=== PATIENT | male | born 2000 | race Caucasian/White ===

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

== ENCOUNTER 2021-02-19 17:30 | Emergency (ER) | payer OTHER ==
[~2021-02-19] VITALS: Ht 160 cm; Wt 90.7 kg
[2021-02-19] MEDS ORDERED: SPIRONOLACTONE25 MG PO (17:47)
[2021-02-19] MEDS ORDERED: DOTTI1 EAC1 TD (17:47)
--- NOTE | 2021-02-19 20:38 | EKG ---
[facility] [address] [facility] [place], [place] [address] Signed Sinus tachycardia Otherwise normal ECG No previous ECGs available Confirmed by KEDAR MILLER MD ([id number]) on 02/19/2021 8:38:27 PM Electronically Signed By: KEDAR MILLER MD 02/19/212037 PATIENT NAME: MAMADOU SWARTZ Electrocardiogram DATE OF : [birth year] PHYSICIAN: KEDAR MILLER MD REPORT #: [id number] REPORT IS CONFIDENTIAL AND NOT TO BE RELEASED WITHOUT AUTHORIZATION
== END 2021-02-19 19:53 | disposition home or self-care (01) ==
LOC: ED 17:30
DX: I47.1 Supraventricular tachycardia (principal); E87.6 Hypokalemia; Z20.822 Contact with and (suspected) exposure to COVID-19; F17.200 Nicotine dependence, unspecified, uncomplicated; Z79.899 Other long term (current) drug therapy
CPT/HCPCS: 71045; 80053; 85025; 93005; 93010; 99285-25; C9803; J7030; J7121; U0003

== ENCOUNTER 2021-02-21 00:24 | Emergency (ER) | payer OTHER ==
[~2021-02-21] VITALS: Ht 160 cm; Wt 90.7 kg
[~2021-02-21 00:24] MED LIST: DOTTI1 EAC1 TD; SPIRONOLACTONE25 MG PO
--- OUTSIDE RECORDS SUMMARY | 2021-02-21 00:32 | XMS ---
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 - 2 Visits in 30 Days CARE PROVIDERS There are no care providers on record at this time. Merle has no Care Guidelines for this patient. [place] [facility] (12 MO.) [facility] NOTE: Visits indicate total known visits. ED/C VISIT TRACKING (12 MO.) 02/21/2021 00:[address] [facility] [place] TYPE: Emergency COMPLAINT: - CHEST PAIN 02/19/2021 17:30 [facility] [place] [place] TYPE: Emergency COMPLAINT: - DIFFICULTY BREATHING INPATIENT VISIT TRACKING (12 MO.) No inpatient visits to display in this time frame [id number]
--- NOTE | 2021-02-21 16:16 | EKG ---
[facility] [address] [facility] [place], [place] [address] Signed Normal sinus rhythm Normal ECG When compared with ECG of 19-FEB-2021 17:37, No significant change was found Confirmed by KEDAR MILLER MD ([id number]) on 02/21/2021 4:15:50 PM Electronically Signed By: KEDAR MILLER MD 02/21/21 1616 PATIENT NAME: MAMADOU SWARTZ BRITNEY Electrocardiogram DATE OF : [birth year] PHYSICIAN: KEDAR MILLER MD REPORT #: [id number] REPORT IS CONFIDENTIAL AND NOT TO BE RELEASED WITHOUT AUTHORIZATION
== END 2021-02-21 05:31 | disposition home or self-care (01) ==
LOC: ED 00:24
DX: R00.2 Palpitations (principal); F43.10 Post-traumatic stress disorder, unspecified; F17.200 Nicotine dependence, unspecified, uncomplicated; Z79.899 Other long term (current) drug therapy
CPT/HCPCS: 71045; 80053; 83735; 84484; 85025; 85379; 93005; 93010; 99285-25

== ENCOUNTER 2021-02-22 16:49 | Emergency (ER) | payer OTHER ==
[~2021-02-22] VITALS: Ht 160 cm; Wt 90.7 kg
--- OUTSIDE RECORDS SUMMARY | 2021-02-22 16:56 | XMS ---
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 Care History Medical/Surgical 02/21/2021 [facility] - Patient is currently established with [facility]. If patient is seen in the ED during business hours. Please contact CHWs at [facility]. Care Recommendation: If this patient has had 5 or more Emergency Department visits in the last 12 months.\T\nbsp; Patient will require education on the scope and purpose of the ED as an acute care provider not a Primary Care Provider and should not be utilized for chronic conditions.\T\nbsp; These are guidelines and the provider should exercise clinical judgment when providing care. E.D. VISIT COUNT (12 MO.) 3 [facility] TOTAL 3 NOTE: Visits indicate total known visits. ED/C VISIT TRACKING (12 MO.) 02/22/2021 16:[address] [facility] [place] TYPE: Emergency COMPLAINT: - HEART PALPITATIONS 02/21/2021 00:[address] [facility] [place] TYPE: Emergency COMPLAINT: - CHEST PAIN 02/19/2021 17:[address] [facility] [place] TYPE: Emergency COMPLAINT: - DIFFICULTY BREATHING DIAGNOSES: - Hypokalemia - Nicotine dependence, unspecified, uncomplicated - Other hogshead stripper (current) drug therapy - Supraventricular tachycardia INPATIENT VISIT TRACKING (12 MO.) No inpatient visits to display in this time frame [email or web address]
--- NOTE | 2021-02-23 19:03 | EKG ---
[facility] [address] [facility] [place] [address] Signed Sinus rhythm with sinus arrhythmia with short [place] Otherwise normal ECG When compared with ECG of 21-FEB-2021 00:33, Vent. rate has decreased BY 34 BPM Confirmed by LISANDRO VASQUES MD ([id number]) on 02/23/2021 7:03:32 PM Electronically Signed By: LISANDRO VASQUES MD 02/23/21 1903 PATIENT NAME: AMMADOU SWARTZ BRITNEY Electrocardiogram DATE OF : 01 PHYSICIAN: LISANDRO VASQUES MD REPORT #: [id number] REPORT IS CONFIDENTIAL AND NOT TO BE RELEASED WITHOUT AUTHORIZATION
== END 2021-02-22 18:12 | disposition home or self-care (01) ==
LOC: ED 16:49
DX: R00.2 Palpitations (principal); F43.10 Post-traumatic stress disorder, unspecified; E11.9 Type 2 diabetes mellitus without complications; F17.200 Nicotine dependence, unspecified, uncomplicated; Z79.899 Other long term (current) drug therapy
CPT/HCPCS: 93005; 93010; 99284-25

== ENCOUNTER 2022-03-08 19:26 | Emergency (ER) | payer OTHER ==
[~2022-03-08] VITALS: Ht 160 cm; Wt 74.5 kg
[2022-03-08] MEDS ORDERED: ESTRADIOL20 MG/1 ML IM (22:21)
[2022-03-08] MEDS ORDERED: SPIRONOLACTONE50 MG PO (22:21)
[2022-03-08] MEDS ORDERED: CLEOCIN HCL300 MG PO (23:40)
[2022-03-08] MEDS ORDERED: HYDROCODON-ACE1 EA10 PO (23:40)
== END 2022-03-09 00:15 | disposition home or self-care (01) ==
LOC: ED 19:26
DX: K04.7 Periapical abscess without sinus (principal); F43.10 Post-traumatic stress disorder, unspecified; F17.200 Nicotine dependence, unspecified, uncomplicated; Z79.899 Other long term (current) drug therapy
CPT/HCPCS: 36415; 70491; 80053; 85025; 99283-25; A9270; Q9967

== ENCOUNTER 2022-08-28 18:51 | Emergency (ER) | payer OTHER ==
[~2022-08-28] VITALS: Ht 160 cm; Wt 74.8 kg
[~2022-08-28 18:51] MED LIST changes: +CLEOCIN HCL300 MG PO; +ESTRADIOL20 MG/1 ML IM; +HYDROCODON-ACE1 EA10 PO; +SPIRONOLACTONE50 MG PO
[2022-08-28] MEDS ORDERED: K-TAB10 MEQ PO (20:52)
== END 2022-08-28 21:00 | disposition home or self-care (01) ==
LOC: ED 18:51
DX: R56.9 Unspecified convulsions (principal); E87.6 Hypokalemia; F43.10 Post-traumatic stress disorder, unspecified; F17.200 Nicotine dependence, unspecified, uncomplicated; Z79.899 Other long term (current) drug therapy
CPT/HCPCS: 36415; 80048; 85025; 96374; 99284-25; A9270; J2060

== ENCOUNTER 2023-12-27 21:02 | Emergency (ER) | payer OTHER ==
[~2023-12-27] VITALS: Ht 160 cm; Wt 79.5 kg
[~2023-12-27 21:02] MED LIST changes: +K-TAB10 MEQ PO; +KEPPRA500 MG PO
[2023-12-27] MEDS ORDERED: LORazepam 2 MG/ML VIAL ONE (21:14)
[2023-12-27] MEDS ORDERED: LACTATED RINGER'S 1,000 ML IV ONE (21:15)
[2023-12-27] MEDS ORDERED: levETIRAcetam 500 MG/5 ML VIAL IV ONE (21:15)
[2023-12-27] MEDS ORDERED: LORazepam 2 MG/ML VIAL IV ONE (21:15)
[2023-12-27 21:17] LABS: BASOPHILS 0.8 % (0-2); EOSINOPHILS 1.3 % (0-6); HEMATOCRIT 43.8 % (35.0-50.0); HEMOGLOBIN 14.6 g/dL (12.0-18.0); LYMPHOCYTES 30.2 % (24-44); MCH 29.3 (27-36); MCHC 33.4 g/dl (30-36); MCV 87.8 fl (81-99); MONOCYTES 5.8 % (0-12); NEUTROPHILS 61.9 % (39-80); PLATELET COUNT 360 K/uL (140-440); RBC 4.99 M/ul (4.3-5.7); RDW 13.2 (10.5-15.0)
[2023-12-27 21:30] LABS: ALBUMIN 3.2 g/dL (3.4-5.0); ALBUMIN/GLOBULIN RATIO 0.97 (1.1-2.4); ALCOHOL, MEDICAL <3 ng/dL (<3); ALKALINE PHOSPHATASE 88 U/L (46-116); ALT (SGPT) 19 U/L (14-59); ANION GAP 17.8 (7-21); AST (SGOT) 8 U/L (15-37); BILIRUBIN, TOTAL 0.2 ng/dL (0.2-1.0); BUN/CREATININE RATIO 8.03 (6.0-28.6); CALCIUM 8.6 mg/dL (8.5-10.1); CARBON DIOXIDE 23 mmol/L (21-32); CHLORIDE 104 mmol/L (98-107); CREATININE, SERUM 1.12 mg/dL (0.70-1.30); GLOMERULAR FILTRATION RATE,EST 95 mL/min (>60); MAGNESIUM 1.6 mg/dL (1.8-2.4); POTASSIUM 3.8 mmol/L (3.5-5.1); PROTEIN, TOTAL 6.5 g/dL (6.4-8.2); UREA NITROGEN 9 mg/dL (7-18)
[2023-12-27 22:03] LABS: BILIRUBIN, URINE NEGATIVE (negative); BLOOD/HGB, URINE NEGATIVE (Negative); KETONE, URINE TRACE (Negative); LEUK ESTERASE, URINE NEGATIVE (negative); NITRITE, URINE NEGATIVE (negative); PH, URINE 6.5 (5-7)
[2023-12-27] MEDS ORDERED: MAGNESIUM SULFATE 2 GM/50 ML BAG IV ONE (22:15)
[2023-12-27 22:17] LABS: AMPHETAMINES, URINE NEGATIVE (NEGATIVE); BARBITURATES, URINE NEGATIVE (NEGATIVE); BENZODIAZEPINE, URINE POSITIVE (NEGATIVE); BUPRENORPHINE, URINE NEGATIVE (NEGATIVE); CANNABINOID, URINE POSITIVE (NEGATIVE); COCAINE, URINE NEGATIVE (NEGATIVE); ECSTASY, URINE NEGATIVE (NEGATIVE); FENTANYL, URINE NEGATIVE (NEGATIVE); METHADONE, URINE NEGATIVE (NEGATIVE); OPIATES, URINE NEGATIVE (NEGATIVE); OXYCODONE, URINE NEGATIVE (NEGATIVE); PHENCYCLIDINE, URINE NEGATIVE (NEGATIVE)
[2023-12-28] MEDS ORDERED: KEPPRA500 MG PO (02:54)
[2023-12-28 05:57] VITALS: BP 112/77
== END 2023-12-28 06:00 | disposition home or self-care (01) ==
LOC: ED 21:02
PROVIDERS: Internal Medicine
DX: G40.409 Other generalized epilepsy and epileptic syndromes, not intractable, without status epilepticus (principal); F43.10 Post-traumatic stress disorder, unspecified; F17.200 Nicotine dependence, unspecified, uncomplicated; Z79.899 Other long term (current) drug therapy
CPT/HCPCS: 36415; 71045; 80053; 80307; 81003; 83735; 85025; 96365; 96375; 99284-25; G0480; J1953; J2060; J3475; J7121

== ENCOUNTER 2024-01-18 02:18 | Emergency (ER) | payer OTHER ==
[~2024-01-18] VITALS: Ht 160 cm; Wt 73.3 kg
[2024-01-18] MEDS ORDERED: levETIRAcetam 500 MG/5 ML VIAL IV ONE (02:45)
[2024-01-18 02:49] LABS: BASOPHILS 1.4 % (0-2); EOSINOPHILS 1.6 % (0-6); HEMATOCRIT 40.8 % (35.0-50.0); HEMOGLOBIN 14.2 g/dL (12.0-18.0); LYMPHOCYTES 35.9 % (24-44); MCH 29.8 (27-36); MCHC 34.7 g/dl (30-36); MCV 85.9 fl (81-99); MONOCYTES 6.1 % (0-12); PLATELET COUNT 283 K/uL (140-440); RBC 4.75 M/ul (4.3-5.7); RDW 13.3 (10.5-15.0)
[2024-01-18 02:53] LABS: BILIRUBIN, URINE NEGATIVE (negative); BLOOD/HGB, URINE NEGATIVE (Negative); KETONE, URINE NEGATIVE (Negative); LEUK ESTERASE, URINE NEGATIVE (negative); NITRITE, URINE NEGATIVE (negative); PH, URINE 6.5 (5-7)
[2024-01-18 03:02] LABS: AMPHETAMINES, URINE NEGATIVE (NEGATIVE); BARBITURATES, URINE NEGATIVE (NEGATIVE); BENZODIAZEPINE, URINE NEGATIVE (NEGATIVE); BUPRENORPHINE, URINE NEGATIVE (NEGATIVE); CANNABINOID, URINE POSITIVE (NEGATIVE); COCAINE, URINE NEGATIVE (NEGATIVE); ECSTASY, URINE NEGATIVE (NEGATIVE); FENTANYL, URINE NEGATIVE (NEGATIVE); METHADONE, URINE NEGATIVE (NEGATIVE); OPIATES, URINE NEGATIVE (NEGATIVE); OXYCODONE, URINE NEGATIVE (NEGATIVE); PHENCYCLIDINE, URINE NEGATIVE (NEGATIVE)
[2024-01-18 03:06] LABS: ALBUMIN 3.2 g/dL (3.4-5.0); ALBUMIN/GLOBULIN RATIO 1.03 (1.1-2.4); ALCOHOL, MEDICAL <3 ng/dL (<3); ALKALINE PHOSPHATASE 75 U/L (46-116); ALT (SGPT) 17 U/L (14-59); ANION GAP 10.3 (7-21); AST (SGOT) 9 U/L (15-37); BILIRUBIN, TOTAL 0.3 ng/dL (0.2-1.0); BUN/CREATININE RATIO 9.33 (6.0-28.6); CALCIUM 8.4 mg/dL (8.5-10.1); CARBON DIOXIDE 27 mmol/L (21-32); CHLORIDE 105 mmol/L (98-107); CREATININE, SERUM 0.75 mg/dL (0.70-1.30); GLOMERULAR FILTRATION RATE,EST 131 mL/min (>60); POTASSIUM 3.3 mmol/L (3.5-5.1); PROTEIN, TOTAL 6.3 g/dL (6.4-8.2); UREA NITROGEN 7 mg/dL (7-18)
[2024-01-18] MEDS ORDERED: POTASSIUM CHLORIDE 10 MEQ TABCR PO ONE (03:15)
[2024-01-18] MEDS ORDERED: LACTATED RINGER'S 1,000 ML IV ONE (03:30)
[2024-01-18] MEDS ORDERED: POTASSIUM CHLORIDE 20 MEQ/15 ML CUP PO ONE (03:30)
[2024-01-18 05:19] VITALS: BP 106/61
--- NOTE | 2024-01-18 20:58 | EKG ---
[facility] [address] [place] [address] Signed Normal sinus rhythm Normal ECG When compared with ECG of 22-FEB-2021 17:01, [place] interval has increased Confirmed by Charles Marie MD () on 01/18/2024 8:58:12 PM Electronically Signed By: CHARLES MARIE MD 01/18/242057 PATIENT NAME: MAMADOU SWARTZ Electrocardiogram DATE OF : 01 PHYSICIAN: CHARLES MARIE MD REPORT #: [id number] REPORT IS CONFIDENTIAL AND NOT TO BE RELEASED WITHOUT AUTHORIZATION
== END 2024-01-18 05:21 | disposition home or self-care (01) ==
LOC: ED 02:18
PROVIDERS: Internal Medicine
DX: G40.909 Epilepsy, unspecified, not intractable, without status epilepticus (principal); F31.81 Bipolar II disorder; F17.200 Nicotine dependence, unspecified, uncomplicated; Z79.899 Other long term (current) drug therapy
CPT/HCPCS: 36415; 71045; 80053; 80307; 81003; 84484; 85025; 93005; 93010; 96374; 99284-25; A9270; G0480; J1953; J7121

== ENCOUNTER 2024-02-05 08:39 | Emergency (ER) | payer OTHER ==
[~2024-02-05] VITALS: Ht 160 cm; Wt 68.3 kg
[2024-02-05] MEDS ORDERED: LIDOCAINE 2% (VISCOUS) HCL 15 ML UDC MT ONE (09:00)
[2024-02-05] MEDS ORDERED: KETOROLAC TROME10 MG PO (09:11)
[2024-02-05 09:34] VITALS: BP 128/70
== END 2024-02-05 09:36 | disposition home or self-care (01) ==
LOC: ED 08:39
DX: J02.8 Acute pharyngitis due to other specified organisms (principal); B97.89 Other viral agents as the cause of diseases classified elsewhere; F31.81 Bipolar II disorder; F17.200 Nicotine dependence, unspecified, uncomplicated; Z79.899 Other long term (current) drug therapy
CPT/HCPCS: 87651; 99283

== ENCOUNTER 2024-02-07 18:00 | Observation (INO) | payer OTHER ==
[~2024-02-07] VITALS: Ht 160 cm; Wt 60.8 kg
[~2024-02-07 18:00] MED LIST changes: +KETOROLAC TROME10 MG PO
[2024-02-07] MEDS ORDERED: AMP/SULBACTAM SOD 3 GM VIAL IV ONE (19:09)
[2024-02-07] MEDS ORDERED: LACTATED RINGER'S 1,000 ML IV ONE (19:15)
[2024-02-07] MEDS ORDERED: AMP/SULBACTAM SOD 3 GM in SODIUM CHLORIDE 0.9% 100 ML IV ONE (19:15)
[2024-02-07] MEDS ORDERED: CEFTRIAXONE/SODIUM CHLORIDE 2 GM/100 ML PIGGYBACK IV ONE (19:15)
[2024-02-07] MEDS ORDERED: ondansetron HCL 4 MG/2 ML VIAL IV ONE (19:15)
[2024-02-07] MEDS ORDERED: ACETAMINOPHEN 500 MG TAB PO ONE (19:15)
[2024-02-07 19:31] LABS: INR 1.25 (0.80-1.30); PROTIME 15.3 Sec (11.2-14.2)
[2024-02-07 19:32] LABS: HEMATOCRIT 43.6 % (35.0-50.0); HEMOGLOBIN 15.3 g/dL (12.0-18.0); MCHC 35.1 g/dl (30-36); MCV 82.6 fl (81-99); PLATELET COUNT 223 K/uL (140-440); RBC 5.28 M/ul (4.3-5.7); RDW 13.3 (10.5-15.0)
[2024-02-07 19:33] LABS: PARTIAL THROMBOPLASTIN TIME 27.1 Sec (22.9-41.3)
[2024-02-07 19:36] LABS: ALBUMIN 2.8 g/dL (3.4-5.0); ALBUMIN/GLOBULIN RATIO 0.58 (1.1-2.4); ANION GAP 23.6 (7-21); BILIRUBIN, TOTAL 1.4 ng/dL (0.2-1.0); BUN/CREATININE RATIO 7.47 (6.0-28.6); CALCIUM 8.5 mg/dL (8.5-10.1); CREATININE, SERUM 1.07 mg/dL (0.70-1.30); POTASSIUM 2.6 mmol/L (3.5-5.1); PROTEIN, TOTAL 7.6 g/dL (6.4-8.2)
[2024-02-07 19:45] LABS: BILIRUBIN, URINE POSITIVE (negative); BLOOD/HGB, URINE SMALL (Negative); KETONE, URINE >=80 (Negative); LEUK ESTERASE, URINE NEGATIVE (negative); NITRITE, URINE NEGATIVE (negative); PH, URINE 6.5 (5-7)
[2024-02-07 19:52] LABS: BASOPHILS, MANUAL DIFF 1; LYMPHOCYTES, MANUAL DIFF 38; MONOCYTES, MANUAL DIFF 9; NEUTROPHILS, MANUAL DIFF 50; OTHER, MANUAL DIFF 2
[2024-02-07] MEDS ORDERED: LACTATED RINGER'S 1,000 ML IV SCH ×2 (20:15→23:45)
[2024-02-07 20:20] LABS: BACTERIA, URINE 1+ /hpf (negative); CASTS, URINE HYALINE 1+ \\lpf; COLLECTION TYPE, URINE CLEAN CATCH; CRYSTALS, URINE NONE SEEN (0-1+); EPITHELIAL CELLS, URINE SQUAMOUS 1+ /lpf (0-1+); REFLEX CULTURE, URINE No (No)
[2024-02-07 20:41] LABS: INFLUENZA B NAA NEGATIVE (NEGATIVE); RESPIRATORY SYNCYTIAL VIR NAA NEGATIVE (NEGATIVE)
[2024-02-07] MEDS ORDERED: DEXAMETHASONE SOD PHOS 10 MG/ML VIAL IV ONE (21:00)
[2024-02-07 21:24] LABS: LACTIC ACID, BLOOD 2.8 mmol/L (0.4-2.0)
[2024-02-07] MEDS ORDERED: ondansetron HCL 4 MG/2 ML VIAL IV PRN (23:45)
[2024-02-08] VITALS (9 sets, daily range): BP systolic 122–131; BP diastolic 64–79
[2024-02-08] MEDS ORDERED: ESTRACE2 MG PO (01:32)
[2024-02-08] MEDS ORDERED: NICOTINE POLACRILEX 4 MG LOZENGE BUCCAL PRN (02:00)
[2024-02-08] MEDS ORDERED: ACETAMINOPHEN 500 MG TAB PO PRN ×2 (02:00→07:00)
[2024-02-08] MEDS ORDERED: AMP/SULBACTAM SOD 3 GM in SODIUM CHLORIDE 0.9% 100 ML IV SCH (02:00)
[2024-02-08] MEDS ORDERED: AMP/SULBACTAM SOD 3 GM VIAL IV ONE (02:04)
[2024-02-08] MEDS ORDERED: POTASSIUM CHLORIDE 10 MEQ TABCR PO ONE ×5 (03:00→23:45)
--- NOTE | 2024-02-08 03:17 | NUR ---
ADMISSION ASSESSMENT COMPLETED, PT MEDICATED WITH TYLENOL FOR THROAT PAIN 12/29. PT MEDICATED WITH KCLOR 40MEQ PO, PT VOIDED PER URINAL 200ML YELLOW URINE, PT WITHOUT OTHER REQUESTS, SIDE RAILS UP X 4, BED IN LOW POSITION, CALL LIGHT IN REACH.
--- NOTE | 2024-02-08 04:40 | NUR ---
PT ASLEEP, RESP EVEN AND REG, WITHOUT DISTRESS.
[2024-02-08 05:38] LABS: BASOPHILS 1.1 % (0-2); HEMATOCRIT 40.2 % (35.0-50.0); HEMOGLOBIN 13.7 g/dL (12.0-18.0); LYMPHOCYTES 46.6 % (24-44); MCH 28.5 (27-36); MCHC 34.2 g/dl (30-36); MCV 83.5 fl (81-99); MONOCYTES 4.3 % (0-12); PLATELET COUNT 210 K/uL (140-440); RBC 4.81 M/ul (4.3-5.7); RDW 13.1 (10.5-15.0)
[2024-02-08 06:01] LABS: ALBUMIN 2.4 g/dL (3.4-5.0); ALBUMIN/GLOBULIN RATIO 0.55 (1.1-2.4); ANION GAP 15.4 (7-21); BILIRUBIN, TOTAL 1.2 ng/dL (0.2-1.0); BUN/CREATININE RATIO 7.86 (6.0-28.6); CALCIUM 8.2 mg/dL (8.5-10.1); CREATININE, SERUM 0.89 mg/dL (0.70-1.30); MAGNESIUM 2.2 mg/dL (1.8-2.4); POTASSIUM 3.4 mmol/L (3.5-5.1); PROTEIN, TOTAL 6.8 g/dL (6.4-8.2)
--- NOTE | 2024-02-08 06:22 | NUR ---
VS COMPLETED PER ELLIOTT LEONARD, VS REVIEWED AND STABLE, PT WITHOUT REQUESTS AT THIS TIME
[2024-02-08] MEDS ORDERED: PROCHLORPERAZINE EDISYLATE 10 MG/2 ML VIAL IV PRN (07:00)
[2024-02-08] MEDS ORDERED: ondansetron HCL 4 MG/2 ML VIAL IV PRN (07:00)
[2024-02-08] MEDS ORDERED: MAGNESIUM HYDROXIDE 30 ML UDC PO PRN (07:00)
[2024-02-08] MEDS ORDERED: phenoL 177 ML SPRAY MT PRN (07:00)
--- NOTE | 2024-02-08 07:00 | NUR ---
PT ASLEEP, RESP EVEN AND REG, OCCASIONAL SNORING HEAR. IVF INFUSING WELL.
[2024-02-08] MEDS ORDERED: DEXTROSE 5% 1,000 ML IV PRN (07:30)
[2024-02-08] MEDS ORDERED: IBLOOD GLUCOSE TEST STRIP 1 EA TEST XX PRN (07:30)
[2024-02-08] MEDS ORDERED: DEXTROSE 50% 50 ML SYR IV PRN ×2 (07:30)
[2024-02-08] MEDS ORDERED: GLUCAGON,HUMAN RECOMBINANT 1 MG/ML VIAL SUB-Q PRN (07:30)
[2024-02-08] MEDS ORDERED: SODIUM CHLORIDE 0.9% 1,000 ML IV SCH (07:30)
--- NOTE | 2024-02-08 07:34 | NUR ---
BEDSIDE REPORT RECEIVED FROM FREDY Frazier RN. PT AWAKE AND ALERT, UP IN BATHROOM.
[2024-02-08] MEDS ORDERED: INSULIN LISPRO 100 UNIT/ML ML SUB-Q SCH (08:00)
[2024-02-08] MEDS ORDERED: IBLOOD GLUCOSE TEST STRIP 1 EA TEST XX SCH (08:00)
--- NOTE | 2024-02-08 08:07 | NUR ---
UR CLINICAL REVIEW: [facility] CRITERIA EOCCO OBS 02/07/24 @ 1802 ORDER MATCHES REG NO AUTH REQUIRED FOR OBS VISIT DISCHARGE HOME WHEN STABLE 02/09/24
--- NOTE | 2024-02-08 08:30 | NUR ---
PATIENT WASHED HER FACE AND BRUSHED HER TEETH. ALSO WENT BACK AND PUT A SEIZURE PAD ON THE LEFT SIDE OF THE BED. ALSO DID HER BLOOD SUGAR CHECK. GOT HER TWO GLASSES OF ICE WATER THIS MORNING. PATIENT IS LAYING DOWN IN HER BED.
--- NOTE | 2024-02-08 08:41 | NUR ---
TONSILS SWOLLEN AND RED BILATERALLY, WHITE DISCOLORATION NOTED.
--- NOTE | 2024-02-08 08:43 | NUR ---
SEIZURE PADS IN PLACE.
[2024-02-08] MEDS ORDERED: POTASSIUM REPLACEMENT PROTOCOL ORAL/IV PO SCH (09:00)
[2024-02-08] MEDS ORDERED: predniSONE 20 MG TAB PO SCH (09:15)
[2024-02-08] MEDS ORDERED: levETIRAcetam 500 MG TAB PO SCH ×2 (09:15→12:00)
[2024-02-08] MEDS ORDERED: ENOXAPARIN SODIUM 40 MG/0.4 ML SYR SUB-Q SCH (09:15)
[2024-02-08] MEDS ORDERED: SODIUM CHLORIDE 45 ML BTL NAS PRN (09:15)
[2024-02-08] MEDS ORDERED: FLUTICASONE PROPIONATE 50 MCG BTL NAS SCH (09:15)
--- NOTE | 2024-02-08 10:55 | NUR ---
IN TO COMPLETE ASSESSMENT, PATIENT SLEEPING AT THIS TIME. ALLOWED TO REST
[2024-02-08] MEDS ORDERED: PHARMACY RENAL DOSE ADJUSTMENT 1 DOSE MISC PO SCH (12:00)
--- NOTE | 2024-02-08 14:44 | NUR ---
PATIENT ALERT AND ORIENTED IN BED. STATES SHE LIVES WITH FATHER IN [facility] [place], FATHER IS ALCOHOLIC AND VERBALLY ABUSIVE. PATIENT HAS NO DME. DOES NOT DRIVE, HOWEVER, KNOWS HOW TO UTILIZE [facility], THOUGH SHE DOES HAVE ISSUES WITH WAIT TIMES. PATIENT HAS A NEW PCP, DR. XIE AT [facility] AND HAS AN APPOINTMENT ON 02/11/24 @ 1400. PATIENT DOES NOT WORK. SHE DOES GET FOOD STAMPS AND FEELS SHE IS OK REGARDING FOOD AND MEDICATIONS. CURRENTLY WORRKING WITH [facility] FOR SSI. PATIENT VERBALIZES ISSUES WITH PTSD, PAIN, DEPRESSION, SEIZURES. WITH PATIENT LIVING WITH VERBALLY ABUSIVE, ALCOHOLIC FATHER, INFORMATION PROVIDED FOR AL-ANON. DENIES OTHER NEEDS AT THIS TIME. INSTRUCTED TO NOTIFY STAFF IF NEEDS ARISE. VERBALIZES UNDERSTANDING. PLANS TO RETURN TO [facility] [place] WITH FATHER AT OR FROM FACILITY.
--- NOTE | 2024-02-08 19:35 | NUR ---
BEDSIDE REPORT RECEIVED FROM REED RN, PT RESTING, AWAKE AND ALERT, REQUESTING NASAL SPRAY, GIVEN PER ORDER, SEIZURE PAD IN PLACED TO LEFT SIDE, SIDE RAILS UP X 3, BED LOW POSITION, PT ON TELE # 8.
--- NOTE | 2024-02-08 20:20 | NUR ---
CALL RECEIVED FROM CCU TO REPORT PT HR UP IN 120'S, RN TO ROOM, PT JUST TURNED SELF TO LEFT SIDE, WATCHING SHOW ON CELL PHONE, DENIES REQUESTS AT THIS TIME.
[2024-02-08] MEDS ORDERED: MELATONIN 3 MG TAB PO PRN (21:00)
--- NOTE | 2024-02-08 21:20 | NUR ---
PT MEDICATED WITH TYLENOL FOR THROAT PAIN 11/29, PER ORDER, PT ALSO STATES HER LOWER BACK HAS DISCOMFORT AT TIMES, SHE REPORTED AT ADMISSION BACK PAIN IS CHRONIC.
--- NOTE | 2024-02-08 21:50 | NUR ---
PT UP TO BR, VOIDED PER URINAL YELLOW URINE AND REPORTS HAVING A BM, GAIT STEADY, BACK TO BED, PT DECLINES SEIZURE PAD ON RIGHT SIDE, SIDE RAIL UP X 3, PT TALKATIVE, ASSISTED CHANGING INTO HER OWN SHIRT, IV SITE PATENT.
--- NOTE | 2024-02-08 22:40 | NUR ---
PT ATTEMPTING TO REST, DENIES REQUESTS AT THIS TIME.
--- NOTE | 2024-02-09 00:01 | NUR ---
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 PT ATTEMPTING TO REST.
[2024-02-09 00:04] VITALS: BP 124/64
--- NOTE | 2024-02-09 02:10 | NUR ---
PT ASLEEP, RESP RATE 20/MIN, HR 95 PER TELE. IVF INFUSING WELL
--- NOTE | 2024-02-09 02:15 | NUR ---
PT ASLEEP, AWAKEN FOR VS, LIGHTS KEPT DIM, PT ALERT, DROWSY, STATES SMALL AMOUNT OF TINGLING IN BOTH SIDE OF HER FACE, STATES HEADACHE IS "PRETTY MUCH GONE", VS STABLE, AFEBRILE, PT WITHOUT REQUESTS, BACK TO SLEEP.
--- NOTE | 2024-02-09 02:50 | NUR ---
PT CONTINUES TO SLEEP, ORDERED ANTIBODIC HUNG AND INFUSING WELL, RESP EVEN AND REG.
[2024-02-09 03:50] VITALS: BP 132/88
--- NOTE | 2024-02-09 03:50 | NUR ---
NURSE CALLED TO ROOM, PT REQUESTING FRESH ICE WATER, GIVEN, PT C/O FEELING TIGHTNESS AROUND THROAT, C/O PAIN 11/29, CHOLOSEPTIC ORAL SPRAY GIVEN AND TYLENOL PER ORDER, VS DONE, AFEBRILE, OXYGEN SAT 96% ON ROOM AIR, THROAT VISUALIZED, SWOLLEN RED TONSILS, SMALL SECTION OF AIRWAY OPEN, PT C/O NASAL STUFFINESS BUT DECLINES NASAL SPRAY, RN REMAINED AT BEDSIDE, AFTER APPROX 15MINUTES PT STATES THROAT TIGHTNESS EAZING, PT BACK TO SLEEP, AUDIBLE RESP HEARD, HOB APPROX 15 DEGREES, PT DECLINES HAVING HOB ELEVATED DUE TO HX OF LOWER BACK PAIN. WARM BLANKET GIVEN PER REQUEST.
--- NOTE | 2024-02-09 04:12 | NUR ---
CPOX PLACED ON PT, CURRENTLY READING 95%, PT ATTEMPTING TO REST, ENCOURAGED TO CALL NURSE IF THROAT TIGHTNESS RETURNS.
--- NOTE | 2024-02-09 04:22 | NUR ---
NURSE CALLED TO ROOM, PT REQUESTS AN ADDITIONAL WARM BLANKET TO PUT ON FACE A "WARM COMPRESS" FOR NASAL STUFFINESS, GIVEN PER REQUEST.
--- NOTE | 2024-02-09 04:41 | NUR ---
Pt angry and irritable, "I want this off, (tele) I have this thing on now (CPOX) thats keeping track of my heart and I have an adhesive allergy and is creating more pain on me, Santos going to do what I want to do and right now I dont want this, Santos just getting very upset right now and Im just going to take it off and this is just going to meke me not want to come to the hospital" tried to explain to him about keeping tele on as he has had a very irrigular rhythm, tachy up to 138's, pros and cons of keeping tele explained to pt and why is necessary, not receptive to information. Pt started talking in a loud angry tone of voice. "I have no chest pain and Im pissed off right now" stated, Primary RN Ene notified. Will call
--- NOTE | 2024-02-09 04:46 | NUR ---
PT SITTING UP IN BED, UPSET AT BEING TOLD THAT TELE NEEDED TO STAY ON BY [place], STATES SHE IS UNABLE TO TOLERATE TELE PADS ANY LONGER DUE TO ADHESIVE ALLERGY, TELE REMOVED BY PATIENT, PT STATES SHE WILL FILE A "HIPPA REPORT", DISCUSSED WHAT CAN BE DONE TO HELP THIS SITUATION, PT STATES SHE DOESN'T WANT THE CHARGE NURSE BACK IN THE ROOM THIS SHIFT, ALSO THAT SHE IS FEELING BETTER WITHOUT TELE UNIT AND PADS ON BECAUSE OF THE PAIN IT WAS CAUSING HER. PLAN TO UPDATE .
--- NOTE | 2024-02-09 04:59 | NUR ---
TC TO DR PONCE, UPDATED ON PT TAKING OFF TELE DUE TO ADHESIVE ALLERGY AND PT BEING UPDATE, MD STATES TELE CAN BE OFF AT THIS TIME, BACK TO ROOM TO UPDATE PT, PT UP TO BR TO VOID, BACK TO BED, PT FEELS RIGHT NOW CONGESTION IN NASAL PASSAGE IS WORSE THAN HIS THROAT, DISCUSSED FREQUENCY OF FLONASE AND SALINE SPRAY, PT VOICES UNDERSTANDING, PT ATTEMPTING TO REST, FRESH ICE WATER GIVEN, PT ATTEMPTING TO REST.
[2024-02-09 05:34] LABS: HEMATOCRIT 33.8 % (35.0-50.0); HEMOGLOBIN 11.8 g/dL (12.0-18.0); MCH 29.2 (27-36); MCHC 34.9 g/dl (30-36); MCV 83.5 fl (81-99); PLATELET COUNT 202 K/uL (140-440); RBC 4.05 M/ul (4.3-5.7); RDW 13.3 (10.5-15.0)
--- NOTE | 2024-02-09 05:45 | NUR ---
PT C/O BEING HOT, COOL CLOTH GIVEN, FAN ON IN ROOM, TEMP DOWN TO LOWEST SETTING IN ROOM.
[2024-02-09 05:50] LABS: ALBUMIN 1.9 g/dL (3.4-5.0); ALBUMIN/GLOBULIN RATIO 0.49 (1.1-2.4); ANION GAP 13.8 (7-21); BILIRUBIN, TOTAL 0.9 ng/dL (0.2-1.0); BUN/CREATININE RATIO 6.02 (6.0-28.6); CALCIUM 7.5 mg/dL (8.5-10.1); CREATININE, SERUM 0.83 mg/dL (0.70-1.30); POTASSIUM 2.8 mmol/L (3.5-5.1); PROTEIN, TOTAL 5.8 g/dL (6.4-8.2)
[2024-02-09 05:52] LABS: BANDS, MANUAL DIFF 7; LYMPHOCYTES, MANUAL DIFF 35; MONOCYTES, MANUAL DIFF 6; NEUTROPHILS, MANUAL DIFF 52
--- NOTE | 2024-02-09 06:14 | NUR ---
PT RESTING WITH EYES CLOSED, HR 100 OXYGEN SAT 96%, RESP QUIETER, EVEN AND REG.
--- NOTE | 2024-02-09 06:23 | NUR ---
PT REQUESTING AN ANTIHISTAMINE AND WARM COMPRESS FOR SINUS PRESSURE, WARM CLOTH GIVEN AND PLAN TO DISCUSS WITH THIS AM CONCERNING ANTIHISTAMINE.
[2024-02-09 06:30] VITALS: BP 132/88
--- NOTE | 2024-02-09 07:15 | NUR ---
DR PONCE TO ROOM TO MAKE MD RANDOLPH AWARE OF K+ OF 2.8 AND STATES SHE ORDERED A SUPPLEMENT, STATES HORMONES WILL BE RESTARTED AFTER D/C, PT UPDATED.
[2024-02-09] MEDS ORDERED: POTASSIUM CHLORIDE 10 MEQ TABCR PO SCH (08:00)
--- NOTE | 2024-02-09 08:24 | NUR ---
Board has been updated and call light has been placed within reach. Patient requested a warm blanket. Kathleen was given, no further request from patient
--- NOTE | 2024-02-09 08:27 | NUR ---
PT RESTING IN BED. C/O PAIN 4/10 IN THE THROAT. ASSESSMENT COMPLETE. MEDICATION ADMIN PER EMAR. IV ABX RUNNING. WARM BLANKET PROVIDED. MEAL TRAY IN ROOM. DENIES ANY NEEDS AT THIS TIME, CALL LIGHT IN REACH.
[2024-02-09] MEDS ORDERED: PREDNISONE20 MG PO (09:11)
[2024-02-09] MEDS ORDERED: AMOX TR-K CLV1 EAC1 PO (09:12)
[2024-02-09] MEDS ORDERED: CHLORASEPTIC M118 ML MM (09:13)
[2024-02-09 09:16] VITALS: BP 126/76
--- NOTE | 2024-02-09 09:54 | NUR ---
PT NOT AVAILABLE FOR VISIT. PROVIDED PRAYER.
[2024-02-10 14:41] LABS: HIV-1 QNT BY NAAT (COPIES/ML) Not Detected cpy/mL (()); HIV-1 QNT BY NAAT INTERP Not Detected (Not Detected); HIV-1 QNT NAAT (LOG COPIES/ML) Not Detected (())
== END 2024-02-09 10:00 | disposition home or self-care (01) ==
LOC: ED 18:00 → MS 18:02
PROVIDERS: Internal Medicine; ADMIT Family Medicine; ATTEND Family Medicine
DX: J03.90 Acute tonsillitis, unspecified (principal); E87.6 Hypokalemia; G40.909 Epilepsy, unspecified, not intractable, without status epilepticus; F90.9 Attention-deficit hyperactivity disorder, unspecified type; F43.10 Post-traumatic stress disorder, unspecified; F31.9 Bipolar disorder, unspecified; F12.99 Cannabis use, unspecified with unspecified cannabis-induced disorder; E78.1 Pure hyperglyceridemia; E87.20 Acidosis, unspecified; F64.0 Transsexualism; Z79.899 Other long term (current) drug therapy
CPT/HCPCS: 36415; 51701; 70491; 71045; 80053; 81001; 83036; 83605; 83735; 85025; 85610; 85730; 86308; 87040; 87502; 87536; 87651; 94762; 96366; 96372; 96376; 99284-25; 99406; A9270; G0378; J0295; J1100; J1650; J1815; J2405; J7030; J7121; J7512; U0002

== ENCOUNTER 2024-10-26 12:04 | Emergency (ER) | payer OTHER ==
[~2024-10-26] VITALS: Ht 162.6 cm; Wt 71.0 kg
[~2024-10-26 12:04] MED LIST changes: +AMOX TR-K CLV1 EAC1 PO; +CHLORASEPTIC M118 ML MM; +ESTRACE2 MG PO; +PREDNISONE20 MG PO
[2024-10-26] MEDS ORDERED: LORazepam 2 MG/ML VIAL IV ONE (12:15)
[2024-10-26] MEDS ORDERED: levETIRAcetam 500 MG/5 ML VIAL IV ONE (12:15)
[2024-10-26 12:21] LABS: BASOPHILS 0.5 % (0-2); EOSINOPHILS 0.3 % (0-6); HEMATOCRIT 48.7 % (35.0-50.0); HEMOGLOBIN 17.1 g/dL (12.0-18.0); LYMPHOCYTES 16.6 % (24-44); MCH 27.9 (27-36); MCHC 35.1 g/dl (30-36); MCV 79.5 fl (81-99); MONOCYTES 5.1 % (0-12); NEUTROPHILS 77.5 % (39-80); PLATELET COUNT 331 K/uL (140-440); RBC 6.13 M/ul (4.3-5.7); RDW 13.7 (10.5-15.0)
[2024-10-26 12:35] LABS: ALBUMIN 4.4 g/dL (3.4-5.0); ALBUMIN/GLOBULIN RATIO 1.33 (1.1-2.4); ANION GAP 20.4 (7-21); BILIRUBIN, TOTAL 0.5 mg/dL (0.2-1.0); BUN/CREATININE RATIO 6.08 (6.0-28.6); CALCIUM 9.1 mg/dL (8.5-10.1); CREATININE, SERUM 1.15 mg/dL (0.55-1.02); POTASSIUM 3.4 mmol/L (3.5-5.1); PROTEIN, TOTAL 7.7 g/dL (6.4-8.2)
[2024-10-26 14:04] VITALS: BP 122/76
== END 2024-10-26 13:50 | disposition home or self-care (01) ==
LOC: EDSEX 12:04 → ED 12:04
PROVIDERS: Emergency Medicine
DX: R56.9 Unspecified convulsions (principal)
CPT/HCPCS: 36415; 80053; 85025; 96374; 96375; 99284-25; J1953; J2060